=== PATIENT | female | born 1990 | race Caucasian/White ===

== ENCOUNTER 2016-09-29 07:56 | Inpatient (IN) ==
[2016-09-29] MEDS ORDERED: Metoclopramide 10 MG/2 ML VIAL IVP PRN (08:15)
[2016-09-29] MEDS ORDERED: Famotidine 20 MG/2 ML VIAL IVP PRN (08:15)
[2016-09-29] MEDS ORDERED: Naloxone 0.4 MG/ML INJ IVP PRN (08:15)
[2016-09-29] MEDS ORDERED: Ringers Solution, Lactated 1,000 ML IVC SCH (08:15)
[2016-09-29] MEDS ORDERED: miSOPROStol 100 MCG TABLET PO SCH (09:41)
--- NOTE | 2016-09-29 10:04 | OB/GYN History & Physical ---
Date of Encounter: 09/29/16 Time of Encounter: 10:00 Assessment and Plan (1) 40 weeks gestation of Current visit: Yes Status: Acute Admit for induction of labor Plan for Cytotec PO Cervical Exam Assessment and Vinay: /, performed by CMN Estimated weight by Vinay: 7Ibs Epidural when requested Anticipate History of Present Illness Chief complaint: Induction of Labor HPI: Ms. Cook is a 26 year old female at 40 weeks and 2 days who presents with an EDC of 09/27/16 for induction of labor. She has had care at [place] with Dr. Turner. She has had reassuring and appropriate antental care. She reports active movement. Endorses "some" contractions. Notes a headache for the past week, relieved with Tylenol. She denies, vaginal bleeding or fluid loss, vision changes, chest pain, SOB, palpitation, dysuria, inability to void, nausea, vomiting, diarrhea or constipation. lab: O+/ Rubella Immune/ TPallidum Neg/ Heb B Nonreactive/ Varicella IgG Antibody POS/GBS-. Past Med Surg Social Fam HX - Past Medical History Medical history: no medical history Psychiatric history: no psych history - Social History Smoking Status: Current every day smoker Packs per day: 1/2 Smokeless Tobacco Status: No Alcohol use: none Drug use: none - Family History Maternal Grandmother Hx Family Medical Disorders: Yes (current DVT) Obstetrical History - Pregnancies : 3 Term: 1 : 0 Ab's: 1 Livin - History/Complications History/Complications: D/C May 2010 Vaginal Delivery 02/23/12 EGA at delivery 8 Ibs 0 oz. History of STDS none. Medications and Allergies Vit37/Iron/Folic Acid [Prenata Chewable Tablet] 1 each PO DAILY [History] Allergies No Known Allergies Allergy (Verified 10/25/15 14:57) Review of System OB - Constitutional Constitutional ROS IM: weight gain, no fever(s), no weakness - Cardiovascular Cardiovascular: as per HPI, leg edema, no chest pain - Respiratory Respiratory: no cough, no dyspnea on exertion, no wheezing, no pain on inspiration - Gastrointestinal Gastrointestinal: as per HPI, no abdominal pain, no change in bowel habits, no constipation, no diarrhea, no nausea, no vomiting - Genitourinary Genitourinary: urinary frequency, no abnormal vaginal bleeding, no difficulty voiding, no dysuria, no urinary incontinence - Psychiatric Psychiatric: anxiety Exam - Vital Signs Vital signs: T: 98.3 BP: 121/79 HR: 79 RR: 18 - Constitutional Constitutional: well developed, well nourished, no acute distress - HEENT HEENT: EOMI, Normocephaly - Neck Neck exam: full ROM, normal inspection, supple - Lungs Respiratory exam: CTAB (No chest wall tenderness on palpation. No wheezing. No tachypnea. ) - Cardiovascular Cardiovascular exam: RRR (No murmurs. ) - Abdomen Abdomen: Present: gravid, non tender. Absent: diffuse tenderness, guarding noted - Extremities Deep Tendon Reflex Grade: 2+ Normal - Cervix Dilation: 3 (Cervical exam performed by CMN) Effacement: 80 Station: -1 - Uterus Uterus exam: Present: normal size, normal contour - Comments Comments: FHT Baseline: 150 bpm Variability: Moderate Contractions: q2-5 min Results All other labs normal. US - abdomen: image reviewed (08/06/16- Scan: Transabdominal. Indication: position. Findings: The fetus is in VTX postition The placenta is anterior +FHR DAILY 12.5 cm Active fetus +breathing & tone--ACJ RDMS. ) - VTE Reasons for not Prescribing Prophylaxis: Treatment not Indicated - Low risk for VTE
[2016-09-29] MEDS ORDERED: *HR* Nalbuphine 20 MG/ML AMPUL IVP PRN (12:00)
--- NOTE | 2016-09-29 12:13 | OB Labor Progress Note ---
Date of Encounter: 09/29/16 Time of Encounter: 12:11 Labor Progress Note - Subjective Subjective: Pt reports minimal discomfort at this time. - Cervix Cervix: 3/80/-1 - Heart Tones Heart Tones: category I - [place]: 3-5 minutes - Interventions Interventions: AROM for small amount clear fluid - Plan Plan: Continue to monitor. Epidural when requested. Anticipate .
[2016-09-29 12:38] LABS: Basophils # 0.1 K/mcL (0.0-0.2); Basophils % 0.5 %; Eosinophils # 0.1 K/mcL (0.0-0.6); Eosinophils % 0.7 %; Hematocrit 38.2 % (35.3-44.9); Hemoglobin 12.8 g/dL (11.5-15.4); Immature Granulocytes % 0.7 % (0-4); Lymphocytes # 2.4 K/mcL (0.6-4.6); Lymphocytes % 21.4 %; Mean Corpuscular HGB Conc 33.5 g/dL (31.6-35.5); Mean Corpuscular Hemoglobin 29.8 pg (28.0-33.3); Mean Corpuscular Volume 88.8 fL (83.0-100.0); Mean Platelet Volume 10.4 fL (9.4-12.4); Monocytes # 0.7 K/mcL (0.0-1.3); Monocytes % 6.6 %; Neutrophils # 7.7 K/mcL (1.6-8.9); Platelet Count 299 K/mcL (140-400); Red Cell Distribution Width 13.1 % (11.5-14.5); Segmented Neutrophils % 70.1 %
[2016-09-29] MEDS ORDERED: Oxytocin 20 units/ LR 1000 mL 20 UNIT/1,000 ML BAG IVC SCH ×2 (14:15→20:00)
--- NOTE | 2016-09-29 16:33 | OB Labor Progress Note ---
Date of Encounter: 09/29/16 Time of Encounter: 16:31 Labor Progress Note - Subjective Subjective: Pt requesting epidural for contraction pain. - Cervix Cervix: 5cm per RN - Heart Tones Heart Tones: Minimal to moderate variability, early decelerations noted. IV fluid bolusing. - [place]: 2-4 minutes - Plan Plan: Epidural now. Will consider placing IUPC after epidural. Anticipate .
[2016-09-29] MEDS ORDERED: Bupivacaine-MPF 0.25% 10 ML VIAL ONE (16:42)
[2016-09-29] MEDS ORDERED: *HR* FentaNYL (PF) 100 MCG/2 ML VIAL ONE (16:42)
[2016-09-29] MEDS ORDERED: Epidural Premix (fent/bupiv) 110 ML EP ONE (16:42)
--- NOTE | 2016-09-29 17:15 | Anesthesia Evaluation PreOp ---
Date of Encounter: 09/29/16 Time of Encounter: 16:47 - Past History Planned Operation: RETA Cardiac History: Denies any Significant Hx Pulmonary History: Denies Any Significant HX [employer] History: Denies Any Significant HX Other Medical History: Denies Any Significant HX Anesthesia History: No Prior Anesthetic Complications (previous RETA--no complications; never had any procedure requiring GA; denies family h/o anesthesia complications) : Yes Test: Positive Alcohol Use: none Drug use: none Medications and Allergies Vit37/Iron/Folic Acid [Prenata Chewable Tablet] 1 each PO DAILY [History] Allergies No Known Allergies Allergy (Verified 10/25/15 14:57) - Meds/Allergy Pre-op Review Medications Reviewed: Yes Allergies Reviewed: Yes Beta Blockers on Current Med List: No Anesthesia Results - Labs 09/29/16 12:27 Anesthesia Exam 117/70; HR 82; RR 20 Height: 1.6m Weight: 70kg NPO (# of Hours): solids > 8hrs Pain Scale: 10 Pain Scale Used: Numeric (1 - 10) - HEENT Pupil (Motor): Pupils equal Mallampati: II Teeth: Normal Oral Opening: Greater than 3 - [employer] LOC: Oriented [employer] Motor: Normal RUE, Normal LUE, Normal RLE, Normal LLE, Normal Face [employer] Sensory: Normal: RUE, LUE, RLE, LLE, Face - Cardiac Rhythm: Regular Murmur: None - Pulmonary Breath Sounds: bilateral Clear Respiratory Effort: Symmetrical Anesthesia Assess/Plan ASA Score: 2 Modified Alison Scale for Level of Consciousness: Anixous, agitated or restless Anesthetic Plan: Regional Autologous Blood: No Monitoring Plan: Standard Monitors Recovery Plan: Other
[2016-09-29] MEDS ORDERED: Bupivacaine-MPF 0.25% 10 ML VIAL EP ONE (17:18)
[2016-09-29] MEDS ORDERED: *HR* FentaNYL (PF) 100 MCG/2 ML VIAL EP ONE (17:18)
--- NOTE | 2016-09-29 17:18 | Anesthesia Procedures ---
Date of Encounter: 09/29/16 Time of Encounter: 17:16 Procedures: Anesthesia - Epidural/Spinal Patient ID/Chart reviewed: Yes Patient examined: Yes OB Eval: Gestational age: 40 weeks 2 days OB Eval: : 3 OB Eval: Hx Para: 1 OB Eval: Contractions: Non-stressed pattern Consent Obtained: Yes Supplemental Oxygen: None/Room Air Site Prep: Aseptic Technique, Sterile prep and drape, Povidone-Iodine 1% Patient position: upright Local Anesthetic: Lidocaine 1% Amount of Local Anesthetic used: 3 Touhy Needle Gauge: 18 Touhy Needle Depth (cm): 4 Catheter Depth at Skin (cm): 10 Test Dose (1.5% Lido + Epi): Volume given (mls): 5 Test Dose Result: Negative Loading Dose: 0.25% Marcaine (mls): 5 Loading Dose: Fentanyl (mcg): 100 Loading Dose Administered: Thru Catheter Infusion Med: 0.125% Bupivacaine w/ 2 mcg/ml Fentanyl Infusion Rate (mls/hr): 14 (demand bolus of 4mL q20min PRN) Catheter Secured in Place: Tegaderm, Tape Interspace Used: L3-L4 Loss of Resistance (LAURIE): Yes Blood: No CSF: No Paresthesia: No Vitals + FHT's: please see Narda GALDAMEZ's electronic documentation
[2016-09-29] MEDS ORDERED: Epidural Premix (fent/bupiv) 110 ML EP SCH (17:30)
--- NOTE | 2016-09-29 18:47 | OB/GYN Procedure Note ---
Delivery - Delivery Date: 09/29/16 Provider: Micaela Turner Intrapartum events: none Delivery induction: AROM, oxytocin, misoprostol Delivery monitor: external FHT, external uterine, internal uterine Anesthesia: epidural Estimated Blood Loss: 300 - Infant (s) Infant A Infant Delivery Date: 09/29/16 Infant Delivery Time: 18:27 Presentation: vertex Position: NATALIA Route of delivery: Gender: Female Viability: Viable Pounds: 8 Ounces: 2 at 1 minute: 8 at 5 mins: 9 Shoulder Dystocia: not encountered Specimens collected: cord blood Placenta: spontaneous Cord: 3 umbilical vessels - Repair Episiotomy: none Laceration Description: Perineal - 2nd Degree - Complications Delivery complications: none Delivery comments: Called to room with patient complete and +2 station. Under maternal effort she delivered a viable female weighing 8 lbs. 2 oz. and Apgars 8 and 9 at one and 5 minutes respectively over a second-degree perineal laceration. Following delivery of the head the infant was bulb suctioned. There is no nuchal cord encountered. The remainder of the infant delivered without difficulty and no shoulder dystocia was encountered. was placed on mom's abdomen. Cord was allowed to cease pulsations prior to double clamp and cutting. Cord blood was collected. Placenta delivered spontaneously, complete, and intact with a three-vessel cord. Second-degree perineal laceration was repaired using 3-0 Vicryl in standard fashion. Mother and infant are recovering in the LDR in stable condition. - Disposition Mom disposition: stable in LDR disposition: stable in LDR
[2016-09-29] MEDS ORDERED: Measles/Mumps/Rubella Vacc 0.5 ML VIAL SQ PRN (20:00)
[2016-09-29] MEDS: Nicotine 14 MG PATCH.TD24 TD SCH (20:34)
[2016-09-29] MEDS: Ibuprofen 600 MG TABLET PO PRN (21:25)
[2016-09-29] MEDS: Acetaminophen 325 MG TABLET PO PRN (22:24)
[2016-09-30] MEDS ORDERED: Lidocaine -MPF 2% 5 ML VIAL ONE (01:11)
[2016-09-30] MEDS: Nicotine 14 MG PATCH.TD24 TD SCH (08:38)
[2016-09-30] MEDS: Prenatal Vit/FA 1 EACH TABLET PO SCH (08:38)
[2016-09-30] MEDS: Ibuprofen 600 MG TABLET PO PRN (08:41)
--- NOTE | 2016-09-30 10:31 | Discharge Summary ---
Date of Encounter: 09/30/16 Time of Encounter: 10:27 - Discharge Diagnosis (1) Vaginal delivery Priority: Primary Status: Acute Comments: Pt meeting all milestones. Pain well managed, tolerating po diet, desires discharge - Discharge Medications Prescriptions: Ibuprofen [Motrin] 600 mg PO Q6HR PRN #60 tab PRN Reason: Cramping Docusate [Colace] 100 mg PO BID #60 Nicotine Patch [Nicoderm] 14 mg TD DAILY #30 Home Medications: Acetaminophen [Tylenol] 650 mg PO Q6HR PRN tab 09/30/16 [Rx] Docusate [Colace] 100 mg PO BID #60 09/30/16 [Rx] Ibuprofen [Motrin] 600 mg PO Q6HR PRN #60 tab 09/30/16 [Rx] Nicotine Patch [Nicoderm] 14 mg TD DAILY #30 09/30/16 [Rx] Vit/FA 1 each PO DAILY tab 09/30/16 [Rx] Allergies/Adverse Reactions: Allergies No Known Allergies Allergy (Verified 10/25/15 14:57) Data Procedures and tests throughout hospitalization: Laboratory Tests 09/29/16 12:27 WBC 11.0 RBC 4.30 Hgb 12.8 Hct 38.2 MCV 88.8 MCH 29.8 MCHC 33.5 RDW 13.1 Plt Count 299 MPV 10.4 Immature Gran % 0.7 Seg Neutrophils % 70.1 Lymphocytes % 21.4 Monocytes % 6.6 Eosinophils % 0.7 Basophils % 0.5 Neutrophils # 7.7 Lymphocytes # 2.4 Monocytes # 0.7 Eosinophils # 0.1 Basophils # 0.1 Labs on day of discharge: Labs from last 24 hours 09/29/16 12:27 WBC 11.0 RBC 4.30 Hgb 12.8 Hct 38.2 MCV 88.8 MCH 29.8 MCHC 33.5 RDW 13.1 Plt Count 299 MPV 10.4 Immature Gran % 0.7 Seg Neutrophils % 70.1 Lymphocytes % 21.4 Monocytes % 6.6 Eosinophils % 0.7 Basophils % 0.5 Neutrophils # 7.7 Lymphocytes # 2.4 Monocytes # 0.7 Eosinophils # 0.1 Basophils # 0.1 Date of admission: 09/29/16 07:56 Primary care physician: PCP NO Consults: 09/29/16 20:00 Consult to Recordist [CONS] Routine Reason for SW Consult: FOB jailed Discharging clinician: Allyssa Quezada Anticipated date of discharge: 09/30/16 - Patient Status Disposition: Home, Self-Care Condition: Good Functional capacity at discharge: independent ambulation Overall status at discharge: patient is back to baseline - Discharge Instructions Follow Up With: NO,PCP [Primary Care Provider] - Micaela Turner, DO [Partnered Physician] - - Diet and Activity Activity: resume usual activities as tolerated Diet: regular diet Hospital Course Reason for admission: active labor Delivery: Episiotomy: none Laceration: 2nd degree Other procedures: none complications: none Discharge diagnosis: IUP at term delivered baby: female Hospital course: Delivery - Delivery Date: 09/29/16 Provider: Micaela Turner Intrapartum events: none Delivery induction: AROM, oxytocin, misoprostol Delivery monitor: external FHT, external uterine, internal uterine Anesthesia: epidural Estimated Blood Loss: 300 - Infant (s) A Delivery Date: 09/29/16 Delivery Time: 18:27 Presentation: vertex Position: NATALIA Route of delivery: Gender: Female Viability: Viable Pounds: 8 Ounces: 2 at 1 minute: 8 at 5 mins: 9 Shoulder Dystocia: not encountered Specimens collected: cord blood Placenta: spontaneous Cord: 3 umbilical vessels - Repair Episiotomy: none Laceration Description: Perineal - 2nd Degree - Complications Delivery complications: none Delivery comments: Called to room with patient complete and +2 station. Under maternal effort she delivered a viable female weighing 8 lbs. 2 oz. and Apgars 8 and 9 at one and 5 minutes respectively over a second-degree perineal laceration. Following delivery of the head the infant was bulb suctioned. There is no nuchal cord encountered. The remainder of the infant delivered without difficulty and no shoulder dystocia was encountered. Infant was placed on mom's abdomen. Cord was allowed to cease pulsations prior to double clamp and cutting. Cord blood was collected. Placenta delivered spontaneously, complete, and intact with a three-vessel cord. Second-degree perineal laceration was repaired using 3-0 Vicryl in standard fashion. Mother and infant are recovering in the LDR in stable condition. - Disposition Mom disposition: stable in PP appropriate for discharge Time Attestation: Total time spent providing and/or coordinating discharge services: Time Spent: Less than 30 minutes Exam - Constitutional Vitals: Temp Pulse Resp BP Pulse Ox 98.1 F 64 16 114/76 98 09/30/16 08:36 09/30/16 08:36 09/30/16 09:00 09/30/16 08:36 09/30/16 08:36 General appearance IM: A&O X 3 - Respiratory Respiratory exam: Present: CTAB - Cardiovascular Cardiovascular exam IM: Present: RRR, +S1, +S2 - GI/Abdominal GI/Abdominal exam IM: soft - Uterine Tone: Firm Uterus Position: At Umbilicus - Extremities Exam Extremities exam IM: Present: normal capillary refill, normal inspection - Neurological Exam Neurological exam: normal gait, oriented X3 - Psychiatric Additional comments: reports good mood
[2016-09-30] MEDS: Acetaminophen 325 MG TABLET PO PRN (16:59)
[2016-09-30] MEDS ORDERED: *HR* Acetaminophen w/Cod 300-30 mg 1 TAB TABLET PO PRN (19:00)
[2016-10-01 08:16] VITALS: BP 112/74
[2016-10-01] MEDS: Prenatal Vit/FA 1 EACH TABLET PO SCH (08:26)
[2016-10-01] MEDS: Nicotine 14 MG PATCH.TD24 TD SCH (08:26)
--- NOTE | 2016-10-01 08:27 | Discharge Summary ---
Date of Encounter: 10/01/16 Time of Encounter: 08:24 - Discharge Diagnosis (1) Vaginal delivery Priority: Primary Status: Acute Comments: Continue routine care discharge home today follow up with Dr. Turner in 4-6 weeks - Discharge Medications Prescriptions: Ibuprofen [Motrin] 600 mg PO Q6HR PRN #60 tab PRN Reason: Cramping Docusate [Colace] 100 mg PO BID #60 Nicotine Patch [Nicoderm] 14 mg TD DAILY #30 Home Medications: Acetaminophen [Tylenol] 650 mg PO Q6HR PRN tab 09/30/16 [Rx] Docusate [Colace] 100 mg PO BID #60 09/30/16 [Rx] Ibuprofen [Motrin] 600 mg PO Q6HR PRN #60 tab 09/30/16 [Rx] Nicotine Patch [Nicoderm] 14 mg TD DAILY #30 09/30/16 [Rx] Vit/FA 1 each PO DAILY tab 09/30/16 [Rx] Allergies/Adverse Reactions: Allergies No Known Allergies Allergy (Verified 10/25/15 14:57) Data Procedures and tests throughout hospitalization: Laboratory Tests 09/29/16 12:27 WBC 11.0 RBC 4.30 Hgb 12.8 Hct 38.2 MCV 88.8 MCH 29.8 MCHC 33.5 RDW 13.1 Plt Count 299 MPV 10.4 Immature Gran % 0.7 Seg Neutrophils % 70.1 Lymphocytes % 21.4 Monocytes % 6.6 Eosinophils % 0.7 Basophils % 0.5 Neutrophils # 7.7 Lymphocytes # 2.4 Monocytes # 0.7 Eosinophils # 0.1 Basophils # 0.1 Date of admission: 09/29/16 07:56 Primary care physician: PCP NO Consults: 09/29/16 20:00 Consult to Electrician Journeyman Wireman [CONS] Routine Reason for SW Consult: FOB jailed Discharging clinician: Theresa Oscar Anticipated date of discharge: 10/01/16 - Patient Status Disposition: Home, Self-Care Condition: Good - Discharge Instructions Follow Up With: Micaela Turner DO [Partnered Physician] - NO,PCP [Primary Care Provider] - - Diet and Activity Activity: increase activity as tolerated Diet: regular diet Hospital Course Reason for admission: induction of labor Delivery: Episiotomy: none Laceration: 2nd degree complications: none Discharge diagnosis: IUP at term delivered [place] baby: female (bottle feeding) Time Attestation: Total time spent providing and/or coordinating discharge services: Time Spent: Less than 30 minutes Exam - Constitutional Vitals: Temp Pulse Resp BP Pulse Ox 98.3 F 57 14 112/74 100 10/01/16 08:15 10/01/16 08:15 10/01/16 08:15 10/01/16 08:15 10/01/16 08:15 General appearance IM: A&O X 3, pleasant, answers questions appropriately - Respiratory Respiratory exam: Present: CTAB - Cardiovascular Cardiovascular exam IM: Present: RRR, +S1, +S2 - GI/Abdominal GI/Abdominal exam IM: normal bowel sounds - Uterine Tone: Firm Uterus Position: 1 Finger Below Umbilicus, Midline - Extremities Exam Extremities exam IM: Present: full ROM, normal capillary refill, normal inspection - Neurological Exam Neurological exam: alert, oriented X3, reflexes normal
[2016-10-01] MEDS ORDERED: Benzocaine/Menthol 56 GM AEROSOL SPRAY TP PRN (08:31)
== END 2016-10-01 11:50 | disposition home or self-care (01) | DRG 560 ==
LOC: 1NENULAB 07:56 → 1NENUOBS 21:03
PROVIDERS: ADMIT Obstetrics & Gynecology; ATTEND Obstetrics & Gynecology